=== PATIENT | female | born 2000 | race African-American/Black ===

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

== ENCOUNTER 2021-12-23 11:02 | Emergency (ER) | payer OTHER ==
[2021-12-23] MEDS ORDERED: Dexamethasone 4 mg/ml Vial ONE (11:28)
[2021-12-23] MEDS ORDERED: diphenhydrAMINE 12.5 MG/5 ML UDCUP ONE (11:28)
[2021-12-23] MEDS ORDERED: Famotidine/PF 20 mg/2ml Vial ONE (11:28)
[2021-12-23] MEDS ORDERED: diphenhydrAMINE 50 MG/ML VIAL ONE (11:31)
[2021-12-23] MEDS ORDERED: EPINEPHrine 1 MG/ML VIAL ONE (11:33)
== END 2021-12-23 12:50 | disposition home or self-care (01) ==
LOC: ERS 11:02
DX: T78.40XA Allergy, unspecified, initial encounter (principal)
CPT/HCPCS: 96372; 96374; 96375; J0171; J1100; J1200; Q0163; S0028

== ENCOUNTER 2024-11-12 08:07 | Outpatient (CLI) | payer OTHER | END 2024-11-12 08:08 | disposition home or self-care (01) | LOC: ULT 08:07 | PROVIDERS: ATTEND Family Medicine | DX: O32.9XX0 Maternal care for malpresentation of fetus, unspecified, not applicable or unspecified (principal); Z3A.28 28 weeks gestation of pregnancy | CPT/HCPCS: 76805 ==